=== PATIENT | male | born 1980 | race Caucasian/White ===

== ENCOUNTER 2025-09-05 17:19 | Emergency (ER) | payer BC, SELFPAY ==
[2025-09-05 17:55] VITALS: BP 146/88; PULSE 84; RESP 18; TEMP 36.9; O2SAT 97; BMI 27.3
--- NOTE | 2025-09-05 18:34 | XR_ITS ---
EXAMINATION: Right hand 2 views TECHNIQUE: AP lateral right hand 2 views Date and time: September 05, 2025, 1840 hours, comparison February 25, 2014 INDICATIONS: Laceration to the hand today with third and fourth digit pain. FINDINGS: No fracture. No dislocation. No opaque foreign body IMPRESSION: No opaque foreign body
--- NOTE | 2025-09-05 19:09 | EDNOTE_ITS ---
ED General RME/HPI General Chief complaint: Hand/Wrist Problems Stated complaint: HAND INJURY Time Seen by Provider: 09/05/25 18:29 Arrival date/time: 09/05/25 17:19 CC: Right hand pain HPI patient had the hand caught between a fence and a cow at approximately 10 AM this morning. The patient had a laceration to the base of the middle digit which the patient put glue on. Minor scrapes to the 4th and 5th digit localized pain in the hand that was of concern. Patient denies numbness or tingling in the fingertips. Has decreased range of motion of the third digit. No other complaints tetanus is not up-to-date. Related Data Previous Rx's ?Medication ?Instructions ?Recorded cephalexin 500 mg capsule 500 mg PO BID #10 caps 09/05 Allergies Allergy/AdvReac Type Severity Reaction Status Date / Time No Known Allergies Allergy Verified 09/05/25 17:23 Review of Systems Review of Systems Narrative Review of Systems: GEN: No fever, no chills, no weight loss EYES: No discharge, no visual changes, no pain HEENT: No ear pain, no congestion, no sore throat PULM: No shortness of breath, no cough, no congestion CV: No chest pain, no dyspnea on exertion, no palpitations GI: No nausea, no vomiting, no diarrhea, no pain, no constipation : No frequency, no urgency, no dysuria MUSC/SKEL: + joint pain, no back pain SKIN: No rash PSYCH: No hallucinations, no depression HEME/LYMPH: No easy bleeding or bruising tendencies NEURO: No weakness, no headache Past Medical History Social History SMOKING STATUS: Current every day smoker ED Exam Narrative Physical exam: [General: Obese not in cot no acute distress Head normocephalic HEENT: Within acceptable limits Neck is supple nontender Chest equal chest rise nontender to palpation Respiratory: Clear to auscultation no wheezes crackles or rubs CV: Rate rhythm is regular no murmurs rubs or clicks Abdomen is distended secondary to body habitus soft nontender no masses positive bowel sounds all 4 quadrants Back: No CVA tenderness no spinous process tenderness from cervical spine thoracic and lumbar spine Skin: Intact no petechiae rash induration ulceration or crepitus Extremities: Right hand: Minor abrasions to the dorsum of the base of the fingers of 4th and 5th digit, the third digit has glue with a Band-Aid firmly attached to it is unable to open it up there is no surrounding erythema or edema. Decreased range of motion of the third PIP. Cap refill in the digit less than 2 seconds neurosensory intact. With prompting full range of motion with pain both flexion and extension of the third digit. Moving all other extremities against resistance cap refill less than 2 seconds neurosensory intact Neuro: Awake alert oriented x3 Glascow coma 15 no focal deficits] Course Quality Measures none Orders Category Date Time Status Splint / Immobilizer STAT Care 09/05/25 18:34 Completed XR hand RT 2V Stat Exams 09/05/25 18:34 Completed TET,DIP/PERT AC (Adult)-Tdap [Boostrix Adult (Tdap) Med 09/05/25 18:34 Discontinued Vacc] 0.5 ml IMI .ONCE ONE cephALEXin [Keflex] Med 09/05/25 18:34 Discontinued 500 mg PO X1 ONE Vital Signs Vital signs: Vital Signs Temperature 98.4 F 09/05/25 17:55 Pulse Rate 84 09/05/25 17:55 Respiratory Rate 18 09/05/25 17:55 Blood Pressure 146/88 H 09/05/25 17:55 Pulse Oximetry (%) 97 09/05/25 17:55 Oxygen Delivery Method Room Air 09/05/25 17:55 Discharge Plan Plan Patient Disposition: HOME (Self Care) Patient condition on transfer: Stable Prescriptions/Referrals Prescriptions/Med Rec: New cephalexin 500 mg capsule 500 mg PO BID Qty: 10 0RF Problem List Clinical Impression: Contusion of hand, Finger laceration Patient/Caregiver Discharge Instructions Education Materials: Bone Contusion, ED Soft Tissue Contusion Additional Instructions: Demetrius tape the second to the third digit and the fourth to the fifth digit during the day, use the splint at night. Ibuprofen or Tylenol for pain if there is a worsening of symptoms return the emergency room immediately for further evaluation. Please take the antibiotics until completely gone. Print Language: [place] Stand Alone Forms: Cyndi Award Info., Work/School Release, Patient Portal Info Letter PA/[employer] Supervising Physician PA/[employer] Supervising Physician: Sen Chapman ENP MDM Clinical Information Provided by: patient Medical Records reviewed [facility] Meds/Rx considered, not ordered None Labs/Rad/Tests considered, not ordered None Chronic Illness/Social Conditions which may negatively complicate care or outcome(s)-explain: None or not applicable EKG EKG not done Labs Labs: none Imaging Imaging interpretation: interpreted by me Imaging Interpretation(s): No acute fracture malalignment or dislocation appreciated in digits 2 through 5. Medication Administration(s) Medication Administration History Discontinued Medications Cephalexin HCl (Cephalexin 250 Mg Capsule) 500 mg PO X1 ONE Stop: 09/05/25 18:35 Last Admin: 09/05/25 19:46 Dose: 500 mg Documented By: ROLO Diphtheria/Tetanus/Acell Pertussis (Diphth,Pertuss(Acell),Tet Vac 0.5 Ml Syr- Adult) 0.5 ml IMi .ONCE ONE Stop: 09/05/25 18:35 Last Admin: 09/05/25 19:46 Dose: 0.5 ml Documented By: ROLO Diagnosis Differential Diagnosis ED Complaint MDM: Finger laceration finger fracture severed ligament
[2025-09-05] MEDS: DIPHTH,PERTUSS(ACELL),TET VAC 0.5 ML SYR- ADULT IMi (19:46)
--- NOTE | 2025-09-05 20:46 | PC.NURSE ---
R arm pre-fabricated splint applied by provider.
== END 2025-09-05 20:48 | disposition home or self-care (01) ==
LOC: SERX 19:15
PROVIDERS: Emergency Provider Emergency Medicine; PCP Family Medicine
DX: S61.212A Laceration without foreign body of right middle finger without damage to nail, initial encounter (principal); W23.0XXA Caught, crushed, jammed, or pinched between moving objects, initial encounter; Y92.89 Other specified places as the place of occurrence of the external cause; Z23 Encounter for immunization
CPT/HCPCS: 73120; 90471; 90715; 99283; A9270